=== PATIENT | male | born 1975 | race African-American/Black ===

== ENCOUNTER 2018-04-11 06:08 | Day surgery (SDC) | payer OTHER ==
[2018-03-31 17:31] VITALS: BMI 23.6
[2018-04-11] MEDS ORDERED: SUCCINYLCHOLINE CHLORIDE 200 MG/10 ML VIAL ONE (07:18)
[2018-04-11] MEDS ORDERED: PROPOFOL 20 ML ONE ×2 (07:18→09:03)
[2018-04-11] MEDS ORDERED: BUPIVACAINE HCL/EPINEPHRINE/PF 30 ML VIAL IJ ONE (07:23)
[2018-04-11] MEDS ORDERED: EPINEPHrine 1:1,000 1 MG/1 ML - 30ML VIAL (INJECTION) ONE (07:23)
[2018-04-11] MEDS ORDERED: MIDAZOLAM HCL 2 MG/2 ML SINGLE DOSE VIAL ONE (07:27)
[2018-04-11] MEDS ORDERED: ROPIVACAINE HCL 0.5% 30ML VIAL ONE (07:27)
[2018-04-11] MEDS ORDERED: DEXAMETHASONE SOD PHOSPHATE/PF 10 MG/ML SDV ONE (07:27)
[2018-04-11] MEDS ORDERED: ceFAZolin SODIUM 1 GM VIAL ONE (08:11)
[2018-04-11] MEDS ORDERED: ONDANSETRON 4 MG/2 ML VIAL ONE (08:58)
[2018-04-11] MEDS ORDERED: DEXAMETHASONE SOD PHOSPHATE 4 MG/1 ML VIAL ONE (08:58)
[2018-04-11] MEDS ORDERED: oxyCODONE HCL 5 MG TABLET PO PRN ×3 (09:18→09:48)
[2018-04-11] MEDS ORDERED: ONDANSETRON 4 MG/2 ML VIAL IVPUSH PRN (09:18)
[2018-04-11] MEDS ORDERED: LACTATED RINGERS SOLUTION 1,000 ML IV SCH (09:30)
[2018-04-11] MEDS ORDERED: oxyCODONE HCL 10 MG SUSTAINED ACTING TABLET PO ONE (09:48)
--- NOTE | 2018-04-11 09:50 | OP ---
Operative Note - Note: Operative Date: 04/11/18 Pre-Operative Diagnosis: Right shoulder RCT Operation: RSA, RCR Post-Operative Diagnosis: Same as Pre-op Surgeon: Rajeev Alonzo Anesthesiologist/PAPER WOOD CUTTER: Ambrose Linton Anesthesia: General Operative Report Dictated: Yes
[2018-04-11 09:51] VITALS: TEMP 97.9
--- NOTE | 2018-04-11 09:51 | DS ---
Physical Examination Vital Signs: Vital Signs Temperature 98.0 F 04/11/18 06:50 Pulse Rate 67 04/11/18 06:50 Respiratory Rate 18 04/11/18 06:50 Blood Pressure 117/68 04/11/18 06:50 O2 Sat by Pulse Oximetry (%) 99 04/11/18 06:50 Discharge Summary Reason For Visit: ROTATOR CUFF TEAR RIGHT SHOULDER Condition: Good - Instructions Diet, Activity, Other Instructions: Post Operative Instructions: Shoulder Arthroscopy Dr Rajeev Alonzo 1. Pain following a Shoulder Arthroscopy is variable and can be significant. Some patients will have more pain than others. You have been provided with a prescription for medication that contains a narcotic. You are not allowed to drive while on this medication. You can take Tylenol (Acetaminophen) when taking the pain medication ( it will NOT result in an overdose). Feel free to take medications such as Ibuprofen or Naprosyn in addition to the pain medicine if you do not have any problems with the NSAID class of medications. Take 81mg of Aspirin twice a day for 10 days for blood clot prevention 2. Apply ice to the shoulder for 15 minutes every hour. You may continue this for as many days as necessary. 3. You may find sleeping on an incline (reclining chair) to be more comfortable for the first few days. 4. You must remain in your sling at all times except when showering. The only exception to this is to allow you to stretch your elbow a few times a day to prevent your hand and forearm from swelling. 5. You are not to use your arm to reach for anything, lift anything or carry anything until instructed otherwise. 6. You may remove the bandages in 24 hours. You may shower at that point. 7. Place band-aids on the sutures after your shower.Do not put any creams or lotions on the incision until after the sutures are removed. 8. Please call the office to schedule a visit to have your sutures removed. 9. If for any reason you believe you may have an infection or are concerned, please feel free to call me. I can be reached through our office number 24 hours a day. 10. Please call our office with any questions; we will review the surgical findings during your post-operative visit. Disposition: HOME - Home Medications Comprehensive Discharge Medication List: Ambulatory Orders NK [No Known Home Medication] 03/31/18
[2018-04-11 11:29] VITALS: BP 118/71; PULSE 71
--- NOTE | 2018-04-16 14:45 | PATH ---
Surgical Pathology Report Patient Name: MELONIE QUEVEDO Med. Rec. #: [id number] /Age/Gender: 1975 (Age: 42) / M Account: [id number] Location: [facility] AMBUL[facility]ORY Taken: 04/11/2018 Received: 04/11/2018 Reported: 04/16/2018 Physicians: Rajeev Alonzo M.D. Specimen(s) Received SHAVINGS RIGHT SHOULDER Clinical History Rotator cuff tear Final Diagnosis SHOULDER, RIGHT, ARTHROSCOPIC SHAVINGS: FIBROSYNOVIAL TISSUE, FIBROCOLLAGENOUS TISSUE, CARTILAGE AND BONE. Electronically Signed Emerald Warren M.D. Gross Description Received in formalin, labeled "shavings, right shoulder" is a 3.5 x 2 x 0.4 cm aggregate of white soft to fibrous tissue. Plant Engineering Manager tissue is submitted in one cassette. AE/04/14/2018 ebram/04/14/2018
== END 2018-04-11 11:10 | disposition home or self-care (01) ==
LOC: FASU 06:08
PROVIDERS: ATTEND Orthopaedic Surgery
PROC: 0LQ14ZZ Repair Right Shoulder Tendon, Percutaneous Endoscopic Approach (ICD-10-PCS; principal; 2018-04-11 07:30)
PROC: 0RNJ4ZZ Release Right Shoulder Joint, Percutaneous Endoscopic Approach (ICD-10-PCS; 2018-04-11 07:30)
DX: M75.101 Unspecified rotator cuff tear or rupture of right shoulder, not specified as traumatic (principal)
CPT/HCPCS: 88304-TC